=== PATIENT | male | born 1965 | race Caucasian/White ===

== ENCOUNTER 2017-01-21 07:38 | Emergency (ER) | payer OTHER ==
[~2017-01-21] VITALS: Ht 172.7 cm; Wt 102.7 kg
[2017-01-21 08:38] LABS: microscopic required? NO
[2017-01-21 09:53] LABS: urine erythrocyte NEGATIVE (NEGATIVE)
[2017-01-21 10:56] VITALS: BP 135/87
== END 2017-01-21 10:56 | disposition home or self-care (01) ==
LOC: ED 07:38
PROVIDERS: Emergency Medicine
DX: N50.811 Right testicular pain (principal); R10.9 Unspecified abdominal pain; I10 Essential (primary) hypertension; F90.9 Attention-deficit hyperactivity disorder, unspecified type; Z88.1 Allergy status to other antibiotic agents; Z88.2 Allergy status to sulfonamides
CPT/HCPCS: Q0092